=== PATIENT | female | born 2000 | race Hispanic/Latino ===

== ENCOUNTER 2022-06-21 11:22 | Emergency (ER) | payer SELFPAY ==
[2022-06-21 12:55] LABS: Bilirubin Negative (Negative); Blood, Urine Large (Negative); Clarity Slightly Cloudy (Clear); Glucose, Urine (Dipstick) Negative (Negative); Ketone, Urine 15 mg/dL (Negative); Leukocyte Moderate (Negative); Nitrite Negative (Negative); Protein, Urine (Dipstick) Trace mg/dL (Neg-Trace); Specific Gravity, Urine 1.008 (1.002-1.036); Urobilinogen 0.2 mg/dL (Less than 2); pH, Urine 5.5 (5.0-9.0)
[2022-06-21 12:58] LABS: Pregnancy Test - Urine (BHCG) Negative (Negative); Pregu Control Background? CLEAR/WHITE (CLR/WHITE); Pregu Control Bar Appear? YES (CONTROL BAR); Specific Gravity 1.008 (1.002-1.036)
[2022-06-21 12:59] LABS: RBC/HPF 21-50 HPF (0-3); WBC/HPF Greater than 50 HPF (0-3)
[2022-06-21 13:01] LABS: Bacteria/HPF 1+ HPF (None Seen)
[2022-06-21] MEDS ORDERED: cefTRIAXone\\ROCEPHIN 500 MG VIAL ONE (13:04)
[2022-06-21] MEDS ORDERED: Azithromycin 250 MG TAB ONE (13:04)
[2022-06-21] MEDS ORDERED: Sterile Water 10 ML ONE (13:12)
[2022-06-21] MEDS ORDERED: Water For Inject, Bacteriostat 0 ML ONE (13:12)
== END 2022-06-21 13:46 | disposition home or self-care (01) ==
LOC: MADERS 11:22
DX: R30.0 Dysuria (principal); Z20.2 Contact with and (suspected) exposure to infections with a predominantly sexual mode of transmission
CPT/HCPCS: 81003; 81015; 81025; 96372; 99283; J0696